=== PATIENT | female | born 1980 | race Hispanic/Latino ===

== ENCOUNTER 2019-12-21 16:29 | Emergency (ER) | payer OTHER ==
[2019-12-21] MEDS ORDERED: ACETAMINOPHEN EXTRA STRENGTH 500 MG TABLET ONE (17:28)
[2019-12-21] MEDS ORDERED: ALBUTEROL INHALER 90MCG/INH IH ONE (18:32)
== END 2019-12-21 20:39 | disposition home or self-care (01) ==
LOC: EDH 16:29
DX: J12.89 Other viral pneumonia (principal); R19.7 Diarrhea, unspecified; R11.10 Vomiting, unspecified; E11.9 Type 2 diabetes mellitus without complications; I10 Essential (primary) hypertension; Z20.828 Contact with and (suspected) exposure to other viral communicable diseases